=== PATIENT | male | born 1955 | race Caucasian/White ===

== ENCOUNTER 2021-01-03 10:00 | Outpatient (CLI) | payer MEDICARE, OTHER ==
[2021-01-03] MEDS ORDERED: DAKINS HALF STRENGTH (0.25%) 480 ML BOTTLE ONE (11:35)
== END 2021-01-03 23:59 | disposition home health service (06) ==
LOC: WOU 10:00
PROVIDERS: ATTEND Podiatrist Foot & Ankle Surgery
DX: I87.313 Chronic venous hypertension (idiopathic) with ulcer of bilateral lower extremity (principal); L97.828 Non-pressure chronic ulcer of other part of left lower leg with other specified severity; L97.818 Non-pressure chronic ulcer of other part of right lower leg with other specified severity; I87.2 Venous insufficiency (chronic) (peripheral); R26.2 Difficulty in walking, not elsewhere classified
CPT/HCPCS: 11042; 11045

== ENCOUNTER 2021-01-05 09:30 | Outpatient (CLI) | payer MEDICARE, OTHER ==
[2021-01-05] MEDS ORDERED: DAKINS HALF STRENGTH (0.25%) 480 ML BOTTLE ONE (11:03)
== END 2021-01-05 23:59 | disposition home or self-care (01) ==
LOC: VASLAB 09:30
PROVIDERS: ATTEND Internal Medicine
DX: I87.313 Chronic venous hypertension (idiopathic) with ulcer of bilateral lower extremity (principal); L97.929 Non-pressure chronic ulcer of unspecified part of left lower leg with unspecified severity; L97.919 Non-pressure chronic ulcer of unspecified part of right lower leg with unspecified severity; I87.2 Venous insufficiency (chronic) (peripheral); I27.20 Pulmonary hypertension, unspecified; K70.30 Alcoholic cirrhosis of liver without ascites
CPT/HCPCS: G0463

== ENCOUNTER 2021-01-17 09:15 | Outpatient (CLI) | payer MEDICARE, OTHER | END 2021-01-17 23:59 | disposition home health service (06) | LOC: WOU 09:15 | PROVIDERS: ATTEND Podiatrist Foot & Ankle Surgery | DX: I87.313 Chronic venous hypertension (idiopathic) with ulcer of bilateral lower extremity (principal); L97.822 Non-pressure chronic ulcer of other part of left lower leg with fat layer exposed; L97.812 Non-pressure chronic ulcer of other part of right lower leg with fat layer exposed; I87.2 Venous insufficiency (chronic) (peripheral); R26.2 Difficulty in walking, not elsewhere classified; Z96.653 Presence of artificial knee joint, bilateral | CPT/HCPCS: 11042; 11045 ==

== ENCOUNTER 2021-01-24 09:15 | Outpatient (CLI) | payer MEDICARE, OTHER | END 2021-01-24 23:59 | disposition home health service (06) | LOC: WOU 09:15 | PROVIDERS: ATTEND Podiatrist Foot & Ankle Surgery | DX: I87.313 Chronic venous hypertension (idiopathic) with ulcer of bilateral lower extremity (principal); L97.822 Non-pressure chronic ulcer of other part of left lower leg with fat layer exposed; L97.812 Non-pressure chronic ulcer of other part of right lower leg with fat layer exposed; I87.2 Venous insufficiency (chronic) (peripheral); R26.2 Difficulty in walking, not elsewhere classified | CPT/HCPCS: 11042; 11045; 29581; A6207 ==

== ENCOUNTER 2021-01-31 09:40 | Outpatient (CLI) | payer MEDICARE, OTHER | END 2021-01-31 23:59 | disposition home health service (06) | LOC: WOU 09:40 | PROVIDERS: ATTEND Podiatrist Foot & Ankle Surgery | DX: I87.313 Chronic venous hypertension (idiopathic) with ulcer of bilateral lower extremity (principal); L97.822 Non-pressure chronic ulcer of other part of left lower leg with fat layer exposed; L97.812 Non-pressure chronic ulcer of other part of right lower leg with fat layer exposed; I87.2 Venous insufficiency (chronic) (peripheral); R26.2 Difficulty in walking, not elsewhere classified; Z96.653 Presence of artificial knee joint, bilateral | CPT/HCPCS: 11042; 11045; A6207 ×2 ==

== ENCOUNTER 2021-02-14 09:30 | Outpatient (CLI) | payer MEDICARE, OTHER ==
[2021-02-14] MEDS ORDERED: UREA 10% -AHA 4% CREAM 57 GM TUBE ONE (10:36)
[2021-02-14] MEDS ORDERED: SILVER NITRATE APPLICATOR 1 EA BOX ONE (11:06)
== END 2021-02-14 23:59 | disposition home health service (06) ==
LOC: WOU 09:30
PROVIDERS: ATTEND Podiatrist Foot & Ankle Surgery
DX: I87.313 Chronic venous hypertension (idiopathic) with ulcer of bilateral lower extremity (principal); L97.822 Non-pressure chronic ulcer of other part of left lower leg with fat layer exposed; L97.812 Non-pressure chronic ulcer of other part of right lower leg with fat layer exposed; I87.2 Venous insufficiency (chronic) (peripheral); R26.2 Difficulty in walking, not elsewhere classified
CPT/HCPCS: 11042; 11045

== ENCOUNTER 2021-02-21 11:59 | Emergency (ER) | payer MEDICARE, OTHER ==
[~2021-02-21] VITALS: Ht 182.9 cm; Wt 111.1 kg
[2021-02-21 12:17] VITALS: BP 149/96
--- NOTE | 2021-02-21 12:51 | NUR ---
home phone number
--- NOTE | 2021-02-21 12:52 | NUR ---
covid swab collected and sent to lab.
--- NOTE | 2021-02-21 12:53 | NUR ---
Patient discharged to home in stable condition. Written and verbal after care instructions given. Patient verbalizes understanding of instruction.
== END 2021-02-21 12:53 | disposition home or self-care (01) ==
LOC: ER 12:02
DX: Z20.822 Contact with and (suspected) exposure to COVID-19 (principal); Z98.890 Other specified postprocedural states; M79.89 Other specified soft tissue disorders
CPT/HCPCS: C9803

== ENCOUNTER 2021-02-28 09:53 | Outpatient (CLI) | payer MEDICARE, OTHER ==
[2021-02-28] MEDS ORDERED: LIDOCAINE SOLN 4% 50 ML BOTTLE ONE (10:28)
== END 2021-02-28 23:59 | disposition home health service (06) ==
LOC: WOU 09:53
PROVIDERS: ATTEND Podiatrist Foot & Ankle Surgery
DX: I87.313 Chronic venous hypertension (idiopathic) with ulcer of bilateral lower extremity (principal); L97.822 Non-pressure chronic ulcer of other part of left lower leg with fat layer exposed; L97.812 Non-pressure chronic ulcer of other part of right lower leg with fat layer exposed; I87.2 Venous insufficiency (chronic) (peripheral); R26.2 Difficulty in walking, not elsewhere classified; Z96.653 Presence of artificial knee joint, bilateral
CPT/HCPCS: 11042; 11045; A6253

== ENCOUNTER 2021-03-07 10:25 | Outpatient (CLI) | payer MEDICARE, OTHER | END 2021-03-07 23:59 | disposition home health service (06) | LOC: WOU 10:25 | PROVIDERS: ATTEND Podiatrist Foot & Ankle Surgery | DX: I87.313 Chronic venous hypertension (idiopathic) with ulcer of bilateral lower extremity (principal); L97.822 Non-pressure chronic ulcer of other part of left lower leg with fat layer exposed; L97.812 Non-pressure chronic ulcer of other part of right lower leg with fat layer exposed; I87.2 Venous insufficiency (chronic) (peripheral); R26.2 Difficulty in walking, not elsewhere classified; Z96.653 Presence of artificial knee joint, bilateral | CPT/HCPCS: 11042; 11045 ×2; A6207 ==

== ENCOUNTER 2021-03-14 09:58 | Outpatient (CLI) | payer MEDICARE, OTHER | END 2021-03-14 23:59 | disposition home health service (06) | LOC: WOU 09:58 | PROVIDERS: ATTEND Podiatrist Foot & Ankle Surgery | DX: I87.313 Chronic venous hypertension (idiopathic) with ulcer of bilateral lower extremity (principal); L97.822 Non-pressure chronic ulcer of other part of left lower leg with fat layer exposed; L97.812 Non-pressure chronic ulcer of other part of right lower leg with fat layer exposed; I87.2 Venous insufficiency (chronic) (peripheral); R26.2 Difficulty in walking, not elsewhere classified; Z96.653 Presence of artificial knee joint, bilateral | CPT/HCPCS: 11042; 11045; A6197 ×2 ==

== ENCOUNTER 2021-03-21 09:40 | Outpatient (CLI) | payer MEDICARE, OTHER | END 2021-03-21 23:59 | disposition home health service (06) | LOC: WOU 09:40 | PROVIDERS: ATTEND Podiatrist Foot & Ankle Surgery | DX: I87.313 Chronic venous hypertension (idiopathic) with ulcer of bilateral lower extremity (principal); L97.822 Non-pressure chronic ulcer of other part of left lower leg with fat layer exposed; L97.812 Non-pressure chronic ulcer of other part of right lower leg with fat layer exposed; L97.512 Non-pressure chronic ulcer of other part of right foot with fat layer exposed; I87.2 Venous insufficiency (chronic) (peripheral); R26.2 Difficulty in walking, not elsewhere classified; Z96.653 Presence of artificial knee joint, bilateral | CPT/HCPCS: 11042; 11045; A6207 ==

== ENCOUNTER → 2021-03-28 | Outpatient (CLI) | payer MEDICARE, OTHER | END | disposition home health service (06) | LOC: WOU 10:30 | PROVIDERS: ATTEND Podiatrist Foot & Ankle Surgery | DX: I87.313 Chronic venous hypertension (idiopathic) with ulcer of bilateral lower extremity (principal); L97.822 Non-pressure chronic ulcer of other part of left lower leg with fat layer exposed; L97.812 Non-pressure chronic ulcer of other part of right lower leg with fat layer exposed; L97.512 Non-pressure chronic ulcer of other part of right foot with fat layer exposed; I87.2 Venous insufficiency (chronic) (peripheral); R26.2 Difficulty in walking, not elsewhere classified | CPT/HCPCS: 11042; 11045; A6207 ==

== ENCOUNTER 2021-04-04 10:05 | Outpatient (CLI) | payer MEDICARE, OTHER ==
[2021-04-04] MEDS ORDERED: LIDOCAINE SOLN 4% 50 ML BOTTLE ONE (11:03)
== END 2021-04-04 23:59 | disposition home health service (06) ==
LOC: WOU 10:05
PROVIDERS: ATTEND Podiatrist Foot & Ankle Surgery
DX: I87.313 Chronic venous hypertension (idiopathic) with ulcer of bilateral lower extremity (principal); L97.822 Non-pressure chronic ulcer of other part of left lower leg with fat layer exposed; L97.812 Non-pressure chronic ulcer of other part of right lower leg with fat layer exposed; L97.512 Non-pressure chronic ulcer of other part of right foot with fat layer exposed; L97.412 Non-pressure chronic ulcer of right heel and midfoot with fat layer exposed; I87.2 Venous insufficiency (chronic) (peripheral); R26.2 Difficulty in walking, not elsewhere classified; Z96.653 Presence of artificial knee joint, bilateral
CPT/HCPCS: 11042; 11045; A6197; A6207

== ENCOUNTER 2021-04-18 10:10 | Outpatient (CLI) | payer MEDICARE, OTHER ==
[2021-04-18] MEDS ORDERED: UREA 10% -AHA 4% CREAM 57 GM TUBE ONE (11:25)
== END 2021-04-18 23:59 | disposition home health service (06) ==
LOC: WOU 10:10
PROVIDERS: ATTEND Podiatrist Foot & Ankle Surgery
DX: I87.313 Chronic venous hypertension (idiopathic) with ulcer of bilateral lower extremity (principal); L97.828 Non-pressure chronic ulcer of other part of left lower leg with other specified severity; L97.812 Non-pressure chronic ulcer of other part of right lower leg with fat layer exposed; L97.512 Non-pressure chronic ulcer of other part of right foot with fat layer exposed; I87.2 Venous insufficiency (chronic) (peripheral); R26.2 Difficulty in walking, not elsewhere classified
CPT/HCPCS: 11042; 11045; 29581; A6207

== ENCOUNTER 2021-04-25 10:10 | Outpatient (CLI) | payer MEDICARE, OTHER ==
[2021-04-25] MEDS ORDERED: SILVER NITRATE APPLICATOR 1 EA BOX ONE (10:37)
== END 2021-04-25 23:59 | disposition home health service (06) ==
LOC: WOU 10:10
PROVIDERS: ATTEND Podiatrist Foot & Ankle Surgery
DX: I87.313 Chronic venous hypertension (idiopathic) with ulcer of bilateral lower extremity (principal); L97.812 Non-pressure chronic ulcer of other part of right lower leg with fat layer exposed; L97.522 Non-pressure chronic ulcer of other part of left foot with fat layer exposed; L97.512 Non-pressure chronic ulcer of other part of right foot with fat layer exposed; I87.2 Venous insufficiency (chronic) (peripheral); R26.2 Difficulty in walking, not elsewhere classified
CPT/HCPCS: 11042; 11045; A6207

== ENCOUNTER 2021-04-28 10:30 | Outpatient (CLI) | payer MEDICARE, OTHER | END 2021-04-28 23:59 | disposition home health service (06) | LOC: WOU 10:30 | PROVIDERS: ATTEND Podiatrist Foot & Ankle Surgery | DX: I87.313 Chronic venous hypertension (idiopathic) with ulcer of bilateral lower extremity (principal); L97.812 Non-pressure chronic ulcer of other part of right lower leg with fat layer exposed; L97.522 Non-pressure chronic ulcer of other part of left foot with fat layer exposed; L97.512 Non-pressure chronic ulcer of other part of right foot with fat layer exposed; I87.2 Venous insufficiency (chronic) (peripheral); R26.2 Difficulty in walking, not elsewhere classified | CPT/HCPCS: 11042; 11045; A6207 ==

== ENCOUNTER 2021-05-09 11:15 | Outpatient (CLI) | payer MEDICARE, OTHER ==
[2021-05-09] MEDS ORDERED: LIDOCAINE 2%-EPI 1:100,000 30 ML VIAL ONE (12:27)
[2021-05-09] MEDS ORDERED: BACI/NEOM/POLY B OINT PKT 1 UDPKT PACKET ONE (13:11)
== END 2021-05-09 23:59 | disposition home or self-care (01) ==
LOC: WOU 11:15
PROVIDERS: ATTEND Podiatrist Foot & Ankle Surgery
DX: S01.81XA Laceration without foreign body of other part of head, initial encounter (principal); W19.XXXA Unspecified fall, initial encounter; Y92.89 Other specified places as the place of occurrence of the external cause; I87.313 Chronic venous hypertension (idiopathic) with ulcer of bilateral lower extremity; L97.822 Non-pressure chronic ulcer of other part of left lower leg with fat layer exposed; L97.812 Non-pressure chronic ulcer of other part of right lower leg with fat layer exposed; L97.512 Non-pressure chronic ulcer of other part of right foot with fat layer exposed; L97.522 Non-pressure chronic ulcer of other part of left foot with fat layer exposed; I87.2 Venous insufficiency (chronic) (peripheral); R26.2 Difficulty in walking, not elsewhere classified
CPT/HCPCS: 11042; 11045; 29581-LT; A6197; A6207; J3490

== ENCOUNTER 2021-05-16 10:30 | Outpatient (CLI) | payer MEDICARE, OTHER ==
[2021-05-16] MEDS ORDERED: LIDOCAINE HCL/MPF 1% 30 ML VIAL IJ ONE (12:34)
[2021-05-16] MEDS ORDERED: BACI/NEOM/POLY B OINT PKT 1 UDPKT PACKET ONE (12:51)
== END 2021-05-16 23:59 | disposition home health service (06) ==
LOC: WOU 10:30
PROVIDERS: ATTEND Podiatrist Foot & Ankle Surgery
DX: I87.313 Chronic venous hypertension (idiopathic) with ulcer of bilateral lower extremity (principal); L97.822 Non-pressure chronic ulcer of other part of left lower leg with fat layer exposed; L97.812 Non-pressure chronic ulcer of other part of right lower leg with fat layer exposed; L97.522 Non-pressure chronic ulcer of other part of left foot with fat layer exposed; L97.512 Non-pressure chronic ulcer of other part of right foot with fat layer exposed; I87.2 Venous insufficiency (chronic) (peripheral); R26.2 Difficulty in walking, not elsewhere classified; S01.81XA Laceration without foreign body of other part of head, initial encounter; X58.XXXA Exposure to other specified factors, initial encounter; Y93.89 Activity, other specified; Y92.89 Other specified places as the place of occurrence of the external cause; S01.81XD Laceration without foreign body of other part of head, subsequent encounter; W19.XXXD Unspecified fall, subsequent encounter
CPT/HCPCS: 11042; 11045; 12011; A6207; J3490

== ENCOUNTER 2021-05-23 11:15 | Outpatient (CLI) | payer MEDICARE, OTHER ==
[2021-05-23] MEDS ORDERED: LIDOCAINE SOLN 4% 50 ML BOTTLE ONE (11:23)
== END 2021-05-23 23:59 | disposition home health service (06) ==
LOC: WOU 11:15
PROVIDERS: ATTEND Podiatrist Foot & Ankle Surgery
DX: I87.313 Chronic venous hypertension (idiopathic) with ulcer of bilateral lower extremity (principal); L97.812 Non-pressure chronic ulcer of other part of right lower leg with fat layer exposed; L97.522 Non-pressure chronic ulcer of other part of left foot with fat layer exposed; L97.512 Non-pressure chronic ulcer of other part of right foot with fat layer exposed; I87.2 Venous insufficiency (chronic) (peripheral); R26.2 Difficulty in walking, not elsewhere classified
CPT/HCPCS: 11042; 11045; A6197; A6207

== ENCOUNTER 2021-05-30 10:35 | Outpatient (CLI) | payer MEDICARE, OTHER ==
[2021-05-30] MEDS ORDERED: LIDOCAINE SOLN 4% 50 ML BOTTLE ONE (10:56)
== END 2021-05-30 23:59 | disposition home health service (06) ==
LOC: WOU 10:35
PROVIDERS: ATTEND Podiatrist Foot & Ankle Surgery
DX: I87.313 Chronic venous hypertension (idiopathic) with ulcer of bilateral lower extremity (principal); L97.828 Non-pressure chronic ulcer of other part of left lower leg with other specified severity; L97.812 Non-pressure chronic ulcer of other part of right lower leg with fat layer exposed; L97.522 Non-pressure chronic ulcer of other part of left foot with fat layer exposed; L97.512 Non-pressure chronic ulcer of other part of right foot with fat layer exposed; S01.81XD Laceration without foreign body of other part of head, subsequent encounter; W19.XXXD Unspecified fall, subsequent encounter; I87.2 Venous insufficiency (chronic) (peripheral); R26.2 Difficulty in walking, not elsewhere classified
CPT/HCPCS: 11042; A6207

== ENCOUNTER 2021-05-30 11:00 | Outpatient (CLI) | payer MEDICARE, OTHER ==
[2021-05-30 11:55] LABS: BASOPHILS # (AUTO) 0.1 K/uL (0.0-0.2); BASOPHILS % (AUTO) 1.1 % (0.0-2.0); EOSINOPHILS % (AUTO) 8.2 % (0.0-6.0); HEMATOCRIT 32 % (39-51); HEMOGLOBIN 10.2 g/dL (13.5-17.5); LYMPHOCYTES # (AUTO) 0.4 K/uL (0.8-4.8); LYMPHOCYTES % (AUTO) 7.1 % (20.0-44.0); MEAN CORPUSCULAR HGB CONC 32 g/dl (31.0-36.0); MEAN CORPUSCULAR VOLUME 86 fL (80-96); MONOCYTES # (AUTO) 0.6 K/uL (0.1-1.30); MONOCYTES % (AUTO) 9.7 % (2.0-12.0); NEUTROPHILS # (AUTO) 4.4 K/uL (1.8-8.9); NEUTROPHILS % (AUTO) 73.9 % (43.0-81.0); PLATELET COUNT (AUTO) 203 K/uL (150-450); RED BLOOD CELL COUNT(AUTO) 3.69 MIL/uL (4.5-6.0); WHITE BLOOD COUNT (AUTO) 5.9 K/uL (4.3-11.0)
[2021-05-30 12:08] LABS: CALCIUM, SERUM 9.3 mg/dL (8.5-10.1); CREATININE 0.8 mg/dL (0.6-1.3); POTASSIUM 3.3 mmol/L (3.5-5.1)
== END 2021-05-30 23:59 | disposition home or self-care (01) ==
LOC: LAB 11:00
PROVIDERS: ATTEND Internal Medicine
DX: D68.9 Coagulation defect, unspecified (principal); R06.02 Shortness of breath; R60.9 Edema, unspecified
CPT/HCPCS: 36415; 80048-TC; 85025-TC; 85730-TC

== ENCOUNTER 2021-06-06 10:00 | Outpatient (CLI) | payer MEDICARE, OTHER ==
[2021-06-06] MEDS ORDERED: UREA 10% -AHA 4% CREAM 57 GM TUBE ONE (11:19)
[2021-06-07 23:33] LABS: PREALBUMIN 16.7 MG/DL (18.0-35.7)
== END 2021-06-06 23:59 | disposition home health service (06) ==
LOC: WOU 10:00
PROVIDERS: ATTEND Podiatrist Foot & Ankle Surgery
DX: I87.311 Chronic venous hypertension (idiopathic) with ulcer of right lower extremity (principal); L97.812 Non-pressure chronic ulcer of other part of right lower leg with fat layer exposed; L97.512 Non-pressure chronic ulcer of other part of right foot with fat layer exposed; I87.2 Venous insufficiency (chronic) (peripheral); R26.2 Difficulty in walking, not elsewhere classified
CPT/HCPCS: 11042; 11045; 29581; 36415; 82306; 82607; 83036; 84134; A6207; J7040

== ENCOUNTER 2021-06-13 10:15 | Outpatient (CLI) | payer MEDICARE, OTHER ==
[2021-06-13] MEDS ORDERED: LIDOCAINE SOLN 4% 50 ML BOTTLE ONE (10:36)
[2021-06-13] MEDS ORDERED: UREA 10% -AHA 4% CREAM 57 GM TUBE ONE (11:32)
== END 2021-06-13 23:59 | disposition home health service (06) ==
LOC: WOU 10:15
PROVIDERS: ATTEND Podiatrist Foot & Ankle Surgery
DX: I87.311 Chronic venous hypertension (idiopathic) with ulcer of right lower extremity (principal); L97.812 Non-pressure chronic ulcer of other part of right lower leg with fat layer exposed; L97.512 Non-pressure chronic ulcer of other part of right foot with fat layer exposed; I87.2 Venous insufficiency (chronic) (peripheral); R26.2 Difficulty in walking, not elsewhere classified
CPT/HCPCS: 11042; 11045; 29581; A6197; A6207; J7040

== ENCOUNTER 2021-06-20 10:25 | Outpatient (CLI) | payer MEDICARE, OTHER ==
[2021-06-20] MEDS ORDERED: UREA 10% -AHA 4% CREAM 57 GM TUBE ONE (10:35)
[2021-06-20] MEDS ORDERED: LIDOCAINE SOLN 4% 50 ML BOTTLE ONE ×2 (10:37→10:39)
== END 2021-06-20 23:59 | disposition home or self-care (01) ==
LOC: WOU 10:25
PROVIDERS: ATTEND Podiatrist Foot & Ankle Surgery
DX: I87.311 Chronic venous hypertension (idiopathic) with ulcer of right lower extremity (principal); L97.812 Non-pressure chronic ulcer of other part of right lower leg with fat layer exposed; L97.512 Non-pressure chronic ulcer of other part of right foot with fat layer exposed; I87.2 Venous insufficiency (chronic) (peripheral); R26.2 Difficulty in walking, not elsewhere classified
CPT/HCPCS: 11042; 11045; A6207; J7040

== ENCOUNTER 2021-06-27 10:45 | Outpatient (CLI) | payer MEDICARE, OTHER ==
[2021-06-27] MEDS ORDERED: UREA 10% -AHA 4% CREAM 57 GM TUBE ONE (11:25)
== END 2021-06-27 23:59 | disposition home health service (06) ==
LOC: WOU 10:45
PROVIDERS: ATTEND Podiatrist Foot & Ankle Surgery
DX: I87.311 Chronic venous hypertension (idiopathic) with ulcer of right lower extremity (principal); L97.812 Non-pressure chronic ulcer of other part of right lower leg with fat layer exposed; L97.512 Non-pressure chronic ulcer of other part of right foot with fat layer exposed; I87.2 Venous insufficiency (chronic) (peripheral); R26.2 Difficulty in walking, not elsewhere classified
CPT/HCPCS: 11042; 11045; A6207

== ENCOUNTER 2021-07-04 10:25 | Outpatient (CLI) | payer MEDICARE, OTHER ==
[2021-07-04] MEDS ORDERED: UREA 10% -AHA 4% CREAM 57 GM TUBE ONE (11:56)
== END 2021-07-04 23:59 | disposition home health service (06) ==
LOC: WOU 10:25
PROVIDERS: ATTEND Podiatrist Foot & Ankle Surgery
DX: I87.311 Chronic venous hypertension (idiopathic) with ulcer of right lower extremity (principal); L97.812 Non-pressure chronic ulcer of other part of right lower leg with fat layer exposed; I87.2 Venous insufficiency (chronic) (peripheral); R26.2 Difficulty in walking, not elsewhere classified
CPT/HCPCS: 11042; 11045; 29581; A6207; J7040

== ENCOUNTER 2021-07-11 11:10 | Outpatient (CLI) | payer MEDICARE, OTHER ==
[2021-07-11] MEDS ORDERED: LIDOCAINE SOLN 4% 50 ML BOTTLE ONE (11:12)
== END 2021-07-11 23:59 | disposition home health service (06) ==
LOC: WOU 11:10
PROVIDERS: ATTEND Podiatrist Foot & Ankle Surgery
DX: I87.311 Chronic venous hypertension (idiopathic) with ulcer of right lower extremity (principal); L97.812 Non-pressure chronic ulcer of other part of right lower leg with fat layer exposed; L97.522 Non-pressure chronic ulcer of other part of left foot with fat layer exposed; I87.2 Venous insufficiency (chronic) (peripheral); R26.2 Difficulty in walking, not elsewhere classified; Z96.653 Presence of artificial knee joint, bilateral
CPT/HCPCS: 11042; 11045; A6207

== ENCOUNTER 2021-07-18 10:30 | Outpatient (CLI) | payer MEDICARE, OTHER ==
[2021-07-18] MEDS ORDERED: UREA 10% -AHA 4% CREAM 57 GM TUBE ONE (10:57)
== END 2021-07-18 23:59 | disposition home health service (06) ==
LOC: WOU 10:30
PROVIDERS: ATTEND Podiatrist Foot & Ankle Surgery
DX: I87.311 Chronic venous hypertension (idiopathic) with ulcer of right lower extremity (principal); L97.812 Non-pressure chronic ulcer of other part of right lower leg with fat layer exposed; L97.522 Non-pressure chronic ulcer of other part of left foot with fat layer exposed; I87.2 Venous insufficiency (chronic) (peripheral); Z96.653 Presence of artificial knee joint, bilateral
CPT/HCPCS: 11042; 11045; A6207

== ENCOUNTER 2021-07-25 09:50 | Outpatient (CLI) | payer MEDICARE, OTHER ==
[2021-07-25] MEDS ORDERED: LIDOCAINE SOLN 4% 50 ML BOTTLE ONE (10:06)
[2021-07-25] MEDS ORDERED: UREA 10% -AHA 4% CREAM 57 GM TUBE ONE (11:11)
== END 2021-07-25 23:59 | disposition home health service (06) ==
LOC: WOU 09:50
PROVIDERS: ATTEND Podiatrist Foot & Ankle Surgery
DX: I87.313 Chronic venous hypertension (idiopathic) with ulcer of bilateral lower extremity (principal); L97.812 Non-pressure chronic ulcer of other part of right lower leg with fat layer exposed; L97.522 Non-pressure chronic ulcer of other part of left foot with fat layer exposed; I87.2 Venous insufficiency (chronic) (peripheral); R26.2 Difficulty in walking, not elsewhere classified; Z96.653 Presence of artificial knee joint, bilateral
CPT/HCPCS: 11042; 11045; A6207; J7040

== ENCOUNTER 2021-08-01 10:00 | Outpatient (CLI) | payer MEDICARE, OTHER ==
[~2021-08-01 10:00] MED LIST: LIDOCAINE SOLN 4% 50 ML BOTTLE ONE; UREA 10% -AHA 4% CREAM 57 GM TUBE ONE
== END 2021-08-01 23:59 | disposition home health service (06) ==
LOC: WOU 10:00
PROVIDERS: ATTEND Podiatrist Foot & Ankle Surgery
DX: I87.313 Chronic venous hypertension (idiopathic) with ulcer of bilateral lower extremity (principal); L97.812 Non-pressure chronic ulcer of other part of right lower leg with fat layer exposed; L97.522 Non-pressure chronic ulcer of other part of left foot with fat layer exposed; L97.512 Non-pressure chronic ulcer of other part of right foot with fat layer exposed; I87.2 Venous insufficiency (chronic) (peripheral); R26.2 Difficulty in walking, not elsewhere classified; Z96.653 Presence of artificial knee joint, bilateral
CPT/HCPCS: 11042; 11045; A6207; J7040

== ENCOUNTER 2021-08-08 09:55 | Outpatient (CLI) | payer MEDICARE, OTHER ==
[2021-08-08] MEDS ORDERED: UREA 10% -AHA 4% CREAM 57 GM TUBE ONE (10:40)
== END 2021-08-08 23:59 | disposition home or self-care (01) ==
LOC: WOU 09:55
PROVIDERS: ATTEND Podiatrist Foot & Ankle Surgery
DX: Z48.00 Encounter for change or removal of nonsurgical wound dressing (principal)
CPT/HCPCS: 29581; A6207; 29580

== ENCOUNTER → 2021-08-15 | Outpatient (CLI) | payer MEDICARE, OTHER ==
[~2021-08-15] MED LIST changes: -LIDOCAINE SOLN 4% 50 ML BOTTLE ONE
== END | disposition home health service (06) ==
LOC: WOU 10:15
PROVIDERS: ATTEND Podiatrist Foot & Ankle Surgery
DX: I87.311 Chronic venous hypertension (idiopathic) with ulcer of right lower extremity (principal); L97.812 Non-pressure chronic ulcer of other part of right lower leg with fat layer exposed; I87.2 Venous insufficiency (chronic) (peripheral); R26.2 Difficulty in walking, not elsewhere classified; Z96.653 Presence of artificial knee joint, bilateral
CPT/HCPCS: 11042; 11045; 29581; A6207; J7040

== ENCOUNTER 2021-08-22 10:05 | Outpatient (CLI) | payer MEDICARE, OTHER | END 2021-08-22 23:59 | disposition home health service (06) | LOC: WOU 10:05 | PROVIDERS: ATTEND Podiatrist Foot & Ankle Surgery | DX: I87.311 Chronic venous hypertension (idiopathic) with ulcer of right lower extremity (principal); L97.812 Non-pressure chronic ulcer of other part of right lower leg with fat layer exposed; I87.2 Venous insufficiency (chronic) (peripheral); R26.2 Difficulty in walking, not elsewhere classified; Z96.653 Presence of artificial knee joint, bilateral | CPT/HCPCS: 11042; 11045; A6207; J7040 ==

== ENCOUNTER 2021-08-29 10:15 | Outpatient (CLI) | payer MEDICARE, OTHER ==
[2021-08-29] MEDS ORDERED: UREA 10% -AHA 4% CREAM 57 GM TUBE ONE (11:16)
== END 2021-08-29 23:59 | disposition home health service (06) ==
LOC: WOU 10:15
PROVIDERS: ATTEND Podiatrist Foot & Ankle Surgery
DX: I87.311 Chronic venous hypertension (idiopathic) with ulcer of right lower extremity (principal); L97.812 Non-pressure chronic ulcer of other part of right lower leg with fat layer exposed; I87.2 Venous insufficiency (chronic) (peripheral); R60.0 Localized edema
CPT/HCPCS: 11042; 11045; 29581; A6207; J7040

== ENCOUNTER 2021-09-05 10:30 | Outpatient (CLI) | payer MEDICARE, OTHER | END 2021-09-05 23:59 | disposition home health service (06) | LOC: WOU 10:30 | PROVIDERS: ATTEND Podiatrist Foot & Ankle Surgery | DX: I87.311 Chronic venous hypertension (idiopathic) with ulcer of right lower extremity (principal); L97.812 Non-pressure chronic ulcer of other part of right lower leg with fat layer exposed; I87.2 Venous insufficiency (chronic) (peripheral); R26.2 Difficulty in walking, not elsewhere classified; Z96.653 Presence of artificial knee joint, bilateral | CPT/HCPCS: 11042; 11045; 29581; A6207; J7040 ==

== ENCOUNTER 2021-10-27 08:58 | Outpatient (CLI) | payer MEDICARE, OTHER ==
[2021-10-27 11:45] LABS: BASOPHILS # (AUTO) 0.1 K/uL (0.0-0.2); BASOPHILS % (AUTO) 0.9 % (0.0-2.0); EOSINOPHILS % (AUTO) 15.4 % (0.0-6.0); HEMATOCRIT 36 % (39-51); HEMOGLOBIN 11.6 g/dL (13.5-17.5); LYMPHOCYTES # (AUTO) 0.7 K/uL (0.8-4.8); MEAN CORPUSCULAR HGB CONC 33 g/dl (31.0-36.0); MEAN CORPUSCULAR VOLUME 84 fL (80-96); MONOCYTES # (AUTO) 0.5 K/uL (0.1-1.30); MONOCYTES % (AUTO) 9.1 % (2.0-12.0); NEUTROPHILS # (AUTO) 3.5 K/uL (1.8-8.9); NEUTROPHILS % (AUTO) 62.6 % (43.0-81.0); PLATELET COUNT (AUTO) 160 K/uL (150-450); RED BLOOD CELL COUNT(AUTO) 4.24 MIL/uL (4.5-6.0); WHITE BLOOD COUNT (AUTO) 5.6 K/uL (4.3-11.0)
[2021-10-27 11:49] LABS: BILIRUBIN,URINE NEGATIVE (NEGATIVE); COLOR,URINE YELLOW (YELLOW); LEUKOCYTE ESTERASE ,URINE NEGATIVE (NEGATIVE); NITRITE, URINE NEGATIVE (NEGATIVE); PROTEIN,URINE NEGATIVE (NEGATIVE); UGLUCOSE NEGATIVE (NEGATIVE); UROBILINOGEN,URINE 0.2 EU/dL (0.2)
[2021-10-27 12:14] LABS: CREATININE, URINE 112.2 MG/DL (30.0-125.0); URINE TOTAL PROTEIN 36.6 mg/dL (0-11.9)
[2021-10-27 12:25] LABS: FREE T4 (FREE THYROXINE) 1.26 ng/dL (0.76-1.46); THYROID STIMULATING HORMONE 3.705 uIU/mL (0.358-3.74)
[2021-10-27 12:33] LABS: C-REACTIVE PROTEIN 8.4 mg/dL (0.0-0.9)
[2021-10-27 18:30] LABS: ALBUMIN 3.2 g/dL (3.4-5.0); BILIRUBIN,TOTAL 0.5 mg/dL (0.2-1.0); CALCIUM, SERUM 8.7 mg/dL (8.5-10.1); CREATININE 0.8 mg/dL (0.6-1.3); MAGNESIUM 2.2 mg/dL (1.8-2.4); POTASSIUM 4.6 mmol/L (3.5-5.1); TOTAL PROTEIN, SERUM 6.5 g/dL (6.4-8.2)
[2021-10-27 19:04] LABS: PHOSPHORUS 3.5 mg/dL (2.5-4.9)
[2021-10-31 08:29] LABS: PROSTATE SPECIFIC ANTIGEN SCR 1.2 ng/mL (0.00-4.00); URIC ACID 3.8 mg/dL (2.6-7.2)
== END 2021-10-27 23:59 | disposition home or self-care (01) ==
LOC: MSC 08:58
PROVIDERS: ATTEND Internal Medicine
DX: I89.0 Lymphedema, not elsewhere classified (principal); S81.802D Unspecified open wound, left lower leg, subsequent encounter; S81.801D Unspecified open wound, right lower leg, subsequent encounter; I27.20 Pulmonary hypertension, unspecified; S22.009A Unspecified fracture of unspecified thoracic vertebra, initial encounter for closed fracture; S32.009A Unspecified fracture of unspecified lumbar vertebra, initial encounter for closed fracture; W19.XXXA Unspecified fall, initial encounter; K74.60 Unspecified cirrhosis of liver; G47.30 Sleep apnea, unspecified; Z99.89 Dependence on other enabling machines and devices; Z79.899 Other long term (current) drug therapy
CPT/HCPCS: 80061; 85025; 82570 ×2; 83735; 83036; 84100; 85652; 81003; 36415; 84439; 82746; 84443; 82607; 80053; 86140; 82306; 82043; 84155; G0463; 84153-TC; 84550-TC

== ENCOUNTER 2021-10-27 09:05 | Outpatient (CLI) | payer MEDICARE, OTHER | END 2021-10-27 23:59 | disposition home health service (06) | LOC: WOU 09:05 | PROVIDERS: ATTEND Podiatrist Foot & Ankle Surgery | DX: I87.311 Chronic venous hypertension (idiopathic) with ulcer of right lower extremity (principal); L97.318 Non-pressure chronic ulcer of right ankle with other specified severity; L97.518 Non-pressure chronic ulcer of other part of right foot with other specified severity; L97.818 Non-pressure chronic ulcer of other part of right lower leg with other specified severity; I87.2 Venous insufficiency (chronic) (peripheral); R26.2 Difficulty in walking, not elsewhere classified | CPT/HCPCS: 11042; 29581; 11045; A6207 ==

== ENCOUNTER 2021-11-01 10:39 | Outpatient (CLI) | payer MEDICARE, OTHER | END 2021-11-01 23:59 | disposition home or self-care (01) | LOC: MSC 10:39 | PROVIDERS: ATTEND Internal Medicine | DX: E87.1 Hypo-osmolality and hyponatremia (principal); I89.0 Lymphedema, not elsewhere classified; I27.20 Pulmonary hypertension, unspecified; S81.802D Unspecified open wound, left lower leg, subsequent encounter; S81.801D Unspecified open wound, right lower leg, subsequent encounter; S22.009D Unspecified fracture of unspecified thoracic vertebra, subsequent encounter for fracture with routine healing; S32.009D Unspecified fracture of unspecified lumbar vertebra, subsequent encounter for fracture with routine healing; K74.60 Unspecified cirrhosis of liver; G47.30 Sleep apnea, unspecified; Z99.89 Dependence on other enabling machines and devices; Z79.899 Other long term (current) drug therapy ==

== ENCOUNTER 2021-11-10 09:15 | Outpatient (CLI) | payer MEDICARE, OTHER | END 2021-11-10 23:59 | disposition home health service (06) | LOC: WOU 09:15 | PROVIDERS: ATTEND Podiatrist Foot & Ankle Surgery | DX: I87.311 Chronic venous hypertension (idiopathic) with ulcer of right lower extremity (principal); L97.312 Non-pressure chronic ulcer of right ankle with fat layer exposed; L97.812 Non-pressure chronic ulcer of other part of right lower leg with fat layer exposed; L97.512 Non-pressure chronic ulcer of other part of right foot with fat layer exposed; I87.2 Venous insufficiency (chronic) (peripheral); R26.2 Difficulty in walking, not elsewhere classified | CPT/HCPCS: 11042; 29581; 11045; A6207 ==

== ENCOUNTER 2021-11-17 09:55 | Outpatient (CLI) | payer MEDICARE, OTHER | END 2021-11-17 23:59 | disposition home health service (06) | LOC: WOU 09:55 | PROVIDERS: ATTEND Podiatrist Foot & Ankle Surgery | DX: I87.313 Chronic venous hypertension (idiopathic) with ulcer of bilateral lower extremity (principal); L97.322 Non-pressure chronic ulcer of left ankle with fat layer exposed; L97.312 Non-pressure chronic ulcer of right ankle with fat layer exposed; L97.512 Non-pressure chronic ulcer of other part of right foot with fat layer exposed; L97.812 Non-pressure chronic ulcer of other part of right lower leg with fat layer exposed; I87.2 Venous insufficiency (chronic) (peripheral); R26.2 Difficulty in walking, not elsewhere classified | CPT/HCPCS: 11042; 11045; A6207 ==

== ENCOUNTER 2021-11-22 10:30 | Outpatient (CLI) | payer MEDICARE, OTHER | END 2021-11-22 23:59 | disposition home or self-care (01) | LOC: MSC 10:30 | PROVIDERS: ATTEND Anesthesiology | DX: G89.4 Chronic pain syndrome (principal); M54.50 Low back pain, unspecified; M25.562 Pain in left knee; M25.561 Pain in right knee; Z99.3 Dependence on wheelchair; F11.20 Opioid dependence, uncomplicated; K70.30 Alcoholic cirrhosis of liver without ascites ==

== ENCOUNTER 2021-12-26 09:00 | Outpatient (CLI) | payer MEDICARE, OTHER | END 2021-12-26 23:59 | disposition home or self-care (01) | LOC: WOU 09:00 | PROVIDERS: ATTEND Podiatrist Foot & Ankle Surgery | DX: I87.313 Chronic venous hypertension (idiopathic) with ulcer of bilateral lower extremity (principal); L97.312 Non-pressure chronic ulcer of right ankle with fat layer exposed; L97.822 Non-pressure chronic ulcer of other part of left lower leg with fat layer exposed; L97.812 Non-pressure chronic ulcer of other part of right lower leg with fat layer exposed; L97.512 Non-pressure chronic ulcer of other part of right foot with fat layer exposed; I87.2 Venous insufficiency (chronic) (peripheral); R26.2 Difficulty in walking, not elsewhere classified | CPT/HCPCS: 11042; 87077; 87075; 87070; 87186 ×3; 11045; J7040; A6207 ==

== ENCOUNTER 2022-01-02 09:00 | Outpatient (CLI) | payer MEDICARE, OTHER ==
[2022-01-02] MEDS ORDERED: LIDOCAINE SOLN 4% 50 ML BOTTLE ONE (09:05)
[2022-01-02] MEDS ORDERED: UREA 10% -AHA 4% CREAM 57 GM TUBE ONE (09:30)
[2022-01-02] MEDS ORDERED: GENTAMICIN 0.1% CREAM 15 GM TUBE ONE ×2 (10:13)
== END 2022-01-02 23:59 | disposition home health service (06) ==
LOC: WOU 09:00
PROVIDERS: ATTEND Podiatrist Foot & Ankle Surgery
DX: I87.313 Chronic venous hypertension (idiopathic) with ulcer of bilateral lower extremity (principal); L97.318 Non-pressure chronic ulcer of right ankle with other specified severity; L97.512 Non-pressure chronic ulcer of other part of right foot with fat layer exposed; L97.828 Non-pressure chronic ulcer of other part of left lower leg with other specified severity; L97.812 Non-pressure chronic ulcer of other part of right lower leg with fat layer exposed; I87.2 Venous insufficiency (chronic) (peripheral); R26.2 Difficulty in walking, not elsewhere classified; Z96.653 Presence of artificial knee joint, bilateral
CPT/HCPCS: 11042; 11045; J7040; A6207

== ENCOUNTER 2022-01-03 09:48 | Outpatient (CLI) | payer MEDICARE, OTHER | END 2022-01-03 23:59 | disposition home or self-care (01) | LOC: MSC 09:48 | PROVIDERS: ATTEND Anesthesiology | DX: G89.4 Chronic pain syndrome (principal); M54.50 Low back pain, unspecified; M25.562 Pain in left knee; M25.561 Pain in right knee; F11.20 Opioid dependence, uncomplicated; K70.30 Alcoholic cirrhosis of liver without ascites; Z99.3 Dependence on wheelchair ==

== ENCOUNTER → 2022-01-05 | Outpatient (CLI) | payer MEDICARE, OTHER | END | disposition home or self-care (01) | LOC: WOU 12:30 | PROVIDERS: ATTEND Registered Nurse | DX: S91.301D Unspecified open wound, right foot, subsequent encounter (principal); X58.XXXD Exposure to other specified factors, subsequent encounter; L08.9 Local infection of the skin and subcutaneous tissue, unspecified; B96.5 Pseudomonas (aeruginosa) (mallei) (pseudomallei) as the cause of diseases classified elsewhere; B96.4 Proteus (mirabilis) (morganii) as the cause of diseases classified elsewhere; B95.2 Enterococcus as the cause of diseases classified elsewhere; I89.0 Lymphedema, not elsewhere classified; G47.33 Obstructive sleep apnea (adult) (pediatric); I27.20 Pulmonary hypertension, unspecified; K74.60 Unspecified cirrhosis of liver; Z96.653 Presence of artificial knee joint, bilateral | CPT/HCPCS: G0463 ==

== ENCOUNTER 2022-01-10 09:15 | Outpatient (CLI) | payer MEDICARE, OTHER ==
[2022-01-10] MEDS ORDERED: LIDOCAINE SOLN 4% 50 ML BOTTLE ONE (09:22)
[2022-01-10] MEDS ORDERED: UREA 10% -AHA 4% CREAM 57 GM TUBE ONE (09:23)
[2022-01-10] MEDS ORDERED: GENTAMICIN 0.1% CREAM 15 GM TUBE ONE ×2 (10:18→10:23)
== END 2022-01-10 23:59 | disposition home health service (06) ==
LOC: WOU 09:15
PROVIDERS: ATTEND Surgery
DX: I87.313 Chronic venous hypertension (idiopathic) with ulcer of bilateral lower extremity (principal); L97.822 Non-pressure chronic ulcer of other part of left lower leg with fat layer exposed; L97.812 Non-pressure chronic ulcer of other part of right lower leg with fat layer exposed; L97.312 Non-pressure chronic ulcer of right ankle with fat layer exposed; L97.512 Non-pressure chronic ulcer of other part of right foot with fat layer exposed; I87.2 Venous insufficiency (chronic) (peripheral); R26.2 Difficulty in walking, not elsewhere classified
CPT/HCPCS: 11042; 11045; J7040; A6207

== ENCOUNTER 2022-01-16 09:15 | Outpatient (CLI) | payer MEDICARE, OTHER ==
[2022-01-16] MEDS ORDERED: GENTAMICIN 0.1% CREAM 15 GM TUBE ONE (09:59)
[2022-01-16 10:10] LABS: BASOPHILS # (AUTO) 0.1 K/uL (0.0-0.2); BASOPHILS % (AUTO) 1.1 % (0.0-2.0); EOSINOPHILS % (AUTO) 6.4 % (0.0-6.0); HEMATOCRIT 39 % (39-51); HEMOGLOBIN 12.4 g/dL (13.5-17.5); LYMPHOCYTES # (AUTO) 0.5 K/uL (0.8-4.8); LYMPHOCYTES % (AUTO) 9.6 % (20.0-44.0); MEAN CORPUSCULAR HGB CONC 32 g/dl (31.0-36.0); MEAN CORPUSCULAR VOLUME 86 fL (80-96); MONOCYTES # (AUTO) 0.5 K/uL (0.1-1.30); MONOCYTES % (AUTO) 10.2 % (2.0-12.0); NEUTROPHILS # (AUTO) 3.7 K/uL (1.8-8.9); NEUTROPHILS % (AUTO) 72.7 % (43.0-81.0); PLATELET COUNT (AUTO) 210 K/uL (150-450); RED BLOOD CELL COUNT(AUTO) 4.51 MIL/uL (4.5-6.0); WHITE BLOOD COUNT (AUTO) 5.1 K/uL (4.3-11.0)
[2022-01-16 10:12] LABS: CREATININE 0.8 mg/dL (0.6-1.3); POTASSIUM 3.9 mmol/L (3.5-5.1)
[2022-01-16] MEDS ORDERED: UREA 10% -AHA 4% CREAM 57 GM TUBE ONE (13:45)
[2022-01-16] MEDS ORDERED: DAKINS HALF STRENGTH (0.25%) 480 ML BOTTLE ONE (13:45)
== END 2022-01-16 23:59 | disposition home health service (06) ==
LOC: WOU 09:15
PROVIDERS: ATTEND Surgery
DX: I87.311 Chronic venous hypertension (idiopathic) with ulcer of right lower extremity (principal); L97.312 Non-pressure chronic ulcer of right ankle with fat layer exposed; L97.812 Non-pressure chronic ulcer of other part of right lower leg with fat layer exposed; L97.512 Non-pressure chronic ulcer of other part of right foot with fat layer exposed; I87.2 Venous insufficiency (chronic) (peripheral); R26.2 Difficulty in walking, not elsewhere classified
CPT/HCPCS: 11042; 11045; 85025; 80048; 36415; A6207

== ENCOUNTER 2022-01-23 09:15 | Outpatient (CLI) | payer MEDICARE, OTHER ==
[2022-01-23] MEDS ORDERED: GENTAMICIN 0.1% CREAM 15 GM TUBE ONE (09:40)
[2022-01-23] MEDS ORDERED: UREA 10% -AHA 4% CREAM 57 GM TUBE ONE (11:05)
== END 2022-01-23 23:59 | disposition home or self-care (01) ==
LOC: WOU 09:15
PROVIDERS: ATTEND Podiatrist Foot & Ankle Surgery
DX: I87.311 Chronic venous hypertension (idiopathic) with ulcer of right lower extremity (principal); L97.312 Non-pressure chronic ulcer of right ankle with fat layer exposed; L97.512 Non-pressure chronic ulcer of other part of right foot with fat layer exposed; L97.822 Non-pressure chronic ulcer of other part of left lower leg with fat layer exposed; L97.812 Non-pressure chronic ulcer of other part of right lower leg with fat layer exposed; I87.2 Venous insufficiency (chronic) (peripheral); R26.2 Difficulty in walking, not elsewhere classified; Z96.653 Presence of artificial knee joint, bilateral
CPT/HCPCS: 11042; 11045; A6207

== ENCOUNTER 2022-01-30 08:47 | Outpatient (CLI) | payer MEDICARE, OTHER ==
[2022-01-30] MEDS ORDERED: UREA 10% -AHA 4% CREAM 57 GM TUBE ONE (08:49)
[2022-01-30] MEDS ORDERED: DAKINS HALF STRENGTH (0.25%) 480 ML BOTTLE ONE (08:54)
[2022-01-30] MEDS ORDERED: GENTAMICIN 0.1% CREAM 15 GM TUBE ONE (09:33)
== END 2022-01-30 23:59 | disposition home health service (06) ==
LOC: WOU 08:47
PROVIDERS: ATTEND Podiatrist Foot & Ankle Surgery
DX: I87.311 Chronic venous hypertension (idiopathic) with ulcer of right lower extremity (principal); L97.312 Non-pressure chronic ulcer of right ankle with fat layer exposed; L97.512 Non-pressure chronic ulcer of other part of right foot with fat layer exposed; L97.812 Non-pressure chronic ulcer of other part of right lower leg with fat layer exposed; I87.2 Venous insufficiency (chronic) (peripheral); R26.2 Difficulty in walking, not elsewhere classified
CPT/HCPCS: 11042; 97597; 11045; A6207

== ENCOUNTER 2022-02-06 09:24 | Outpatient (CLI) | payer MEDICARE, OTHER ==
[2022-02-06] MEDS ORDERED: GENTAMICIN 0.1% CREAM 15 GM TUBE ONE (09:30)
[2022-02-06] MEDS ORDERED: UREA 10% -AHA 4% CREAM 57 GM TUBE ONE (09:32)
== END 2022-02-06 23:59 | disposition home health service (06) ==
LOC: WOU 09:24
PROVIDERS: ATTEND Podiatrist Foot & Ankle Surgery
DX: I87.311 Chronic venous hypertension (idiopathic) with ulcer of right lower extremity (principal); L97.312 Non-pressure chronic ulcer of right ankle with fat layer exposed; L97.518 Non-pressure chronic ulcer of other part of right foot with other specified severity; L97.812 Non-pressure chronic ulcer of other part of right lower leg with fat layer exposed; I87.2 Venous insufficiency (chronic) (peripheral); R26.2 Difficulty in walking, not elsewhere classified; Z96.653 Presence of artificial knee joint, bilateral
CPT/HCPCS: 11042; 11045; A6207

== ENCOUNTER 2022-02-13 08:49 | Outpatient (CLI) | payer MEDICARE, OTHER ==
[2022-02-13] MEDS ORDERED: DAKINS HALF STRENGTH (0.25%) 480 ML BOTTLE ONE (09:34)
[2022-02-13] MEDS ORDERED: GENTAMICIN 0.1% CREAM 15 GM TUBE ONE (09:39)
[2022-02-13] MEDS ORDERED: UREA 10% -AHA 4% CREAM 57 GM TUBE ONE (09:39)
== END 2022-02-13 23:59 | disposition home health service (06) ==
LOC: WOU 08:49
PROVIDERS: ATTEND Podiatrist Foot & Ankle Surgery
DX: I87.313 Chronic venous hypertension (idiopathic) with ulcer of bilateral lower extremity (principal); L97.822 Non-pressure chronic ulcer of other part of left lower leg with fat layer exposed; L97.812 Non-pressure chronic ulcer of other part of right lower leg with fat layer exposed; L97.312 Non-pressure chronic ulcer of right ankle with fat layer exposed; I87.2 Venous insufficiency (chronic) (peripheral); R26.2 Difficulty in walking, not elsewhere classified
CPT/HCPCS: 11042; 11045; A6207

== ENCOUNTER 2022-02-20 09:49 | Outpatient (CLI) | payer MEDICARE, OTHER ==
[~2022-02-20 09:49] MED LIST changes: +DAKINS HALF STRENGTH (0.25%) 480 ML BOTTLE ONE; -UREA 10% -AHA 4% CREAM 57 GM TUBE ONE
[2022-02-20] MEDS ORDERED: GENTAMICIN 0.1% CREAM 15 GM TUBE ONE (10:25)
[2022-02-20] MEDS ORDERED: UREA 10% -AHA 4% CREAM 57 GM TUBE ONE (10:46)
== END 2022-02-20 23:59 | disposition home health service (06) ==
LOC: WOU 09:49
PROVIDERS: ATTEND Podiatrist Foot & Ankle Surgery
DX: I87.311 Chronic venous hypertension (idiopathic) with ulcer of right lower extremity (principal); L97.312 Non-pressure chronic ulcer of right ankle with fat layer exposed; L97.812 Non-pressure chronic ulcer of other part of right lower leg with fat layer exposed; L97.512 Non-pressure chronic ulcer of other part of right foot with fat layer exposed; I87.2 Venous insufficiency (chronic) (peripheral); R26.2 Difficulty in walking, not elsewhere classified
CPT/HCPCS: 11042; 11045; 87077; 87075; 87070; A6207

== ENCOUNTER 2022-02-27 09:15 | Outpatient (CLI) | payer MEDICARE, OTHER ==
[2022-02-27] MEDS ORDERED: DAKINS HALF STRENGTH (0.25%) 480 ML BOTTLE ONE (09:44)
[2022-02-27] MEDS ORDERED: UREA 10% -AHA 4% CREAM 57 GM TUBE ONE (09:44)
[2022-02-27] MEDS ORDERED: MUPIROCIN 2% CREAM 15 GM TUBE TP ONE (10:03)
== END 2022-02-27 23:59 | disposition home health service (06) ==
LOC: WOU 09:15
PROVIDERS: ATTEND Podiatrist Foot & Ankle Surgery
DX: I87.311 Chronic venous hypertension (idiopathic) with ulcer of right lower extremity (principal); L97.312 Non-pressure chronic ulcer of right ankle with fat layer exposed; L97.512 Non-pressure chronic ulcer of other part of right foot with fat layer exposed; L97.812 Non-pressure chronic ulcer of other part of right lower leg with fat layer exposed; L08.9 Local infection of the skin and subcutaneous tissue, unspecified; B95.62 Methicillin resistant Staphylococcus aureus infection as the cause of diseases classified elsewhere; I87.2 Venous insufficiency (chronic) (peripheral); L84 Corns and callosities; R26.2 Difficulty in walking, not elsewhere classified
CPT/HCPCS: 11042; 11055; 11045; A6207

== ENCOUNTER 2022-03-20 09:45 | Outpatient (CLI) | payer MEDICARE, OTHER ==
[2022-03-20] MEDS ORDERED: SILVER NITRATE APPLICATOR 1 EA BOX ONE (10:22)
[2022-03-20] MEDS ORDERED: MUPIROCIN 2% CREAM 15 GM TUBE TP ONE (10:45)
== END 2022-03-20 23:59 | disposition home health service (06) ==
LOC: WOU 09:45
PROVIDERS: ATTEND Podiatrist Foot & Ankle Surgery
DX: I87.311 Chronic venous hypertension (idiopathic) with ulcer of right lower extremity (principal); L97.312 Non-pressure chronic ulcer of right ankle with fat layer exposed; L97.512 Non-pressure chronic ulcer of other part of right foot with fat layer exposed; L97.818 Non-pressure chronic ulcer of other part of right lower leg with other specified severity; I87.2 Venous insufficiency (chronic) (peripheral); L84 Corns and callosities; R26.2 Difficulty in walking, not elsewhere classified
CPT/HCPCS: 11042; 11055; A6207

== ENCOUNTER 2022-03-27 09:22 | Outpatient (CLI) | payer MEDICARE, OTHER ==
[~2022-03-27 09:22] MED LIST changes: -DAKINS HALF STRENGTH (0.25%) 480 ML BOTTLE ONE; +MUPIROCIN 2% CREAM 15 GM TUBE TP ONE
== END 2022-03-27 23:59 | disposition home health service (06) ==
LOC: WOU 09:22
PROVIDERS: ATTEND Podiatrist Foot & Ankle Surgery
DX: I87.311 Chronic venous hypertension (idiopathic) with ulcer of right lower extremity (principal); L97.312 Non-pressure chronic ulcer of right ankle with fat layer exposed; L97.518 Non-pressure chronic ulcer of other part of right foot with other specified severity; L97.812 Non-pressure chronic ulcer of other part of right lower leg with fat layer exposed; I87.2 Venous insufficiency (chronic) (peripheral); R26.2 Difficulty in walking, not elsewhere classified; Z96.653 Presence of artificial knee joint, bilateral
CPT/HCPCS: 11042; A6207

== ENCOUNTER 2022-04-03 09:03 | Outpatient (CLI) | payer MEDICARE, OTHER ==
[2022-04-03] MEDS ORDERED: LIDOCAINE SOLN 4% 50 ML BOTTLE ONE (09:39)
[2022-04-03] MEDS ORDERED: HYDROCORTISONE 1% CREAM 28.35 GM TUBE TP ONE (09:54)
== END 2022-04-03 23:59 | disposition home health service (06) ==
LOC: WOU 09:03
PROVIDERS: ATTEND Podiatrist Foot & Ankle Surgery
DX: I87.311 Chronic venous hypertension (idiopathic) with ulcer of right lower extremity (principal); L97.512 Non-pressure chronic ulcer of other part of right foot with fat layer exposed; L97.818 Non-pressure chronic ulcer of other part of right lower leg with other specified severity; I87.2 Venous insufficiency (chronic) (peripheral); R26.2 Difficulty in walking, not elsewhere classified; Z96.653 Presence of artificial knee joint, bilateral; Z87.891 Personal history of nicotine dependence
CPT/HCPCS: 11042; A6207

== ENCOUNTER → 2022-04-13 | Outpatient (CLI) | payer MEDICARE, OTHER ==
[~2022-04-13] MED LIST changes: -MUPIROCIN 2% CREAM 15 GM TUBE TP ONE; +UREA 10% -AHA 4% CREAM 57 GM TUBE ONE
== END | disposition home health service (06) ==
LOC: WOU 08:42
PROVIDERS: ATTEND Podiatrist Foot & Ankle Surgery
DX: I87.311 Chronic venous hypertension (idiopathic) with ulcer of right lower extremity (principal); L97.312 Non-pressure chronic ulcer of right ankle with fat layer exposed; L97.818 Non-pressure chronic ulcer of other part of right lower leg with other specified severity; I87.2 Venous insufficiency (chronic) (peripheral); R26.2 Difficulty in walking, not elsewhere classified
CPT/HCPCS: 11042; 29581; A6207

== ENCOUNTER 2022-04-20 09:12 | Outpatient (CLI) | payer MEDICARE, OTHER | END 2022-04-20 23:59 | disposition home health service (06) | LOC: WOU 09:12 | PROVIDERS: ATTEND Podiatrist Foot & Ankle Surgery | DX: I87.311 Chronic venous hypertension (idiopathic) with ulcer of right lower extremity (principal); L97.312 Non-pressure chronic ulcer of right ankle with fat layer exposed; L97.812 Non-pressure chronic ulcer of other part of right lower leg with fat layer exposed; I87.2 Venous insufficiency (chronic) (peripheral); R26.2 Difficulty in walking, not elsewhere classified; Z96.653 Presence of artificial knee joint, bilateral | CPT/HCPCS: 11042; 29581; 11045; A6207 ==

== ENCOUNTER 2022-04-27 09:02 | Outpatient (CLI) | payer MEDICARE, OTHER ==
[~2022-04-27 09:02] MED LIST changes: +COLLAGENASE 5 GM TUBE UD TP ONE; -UREA 10% -AHA 4% CREAM 57 GM TUBE ONE
[2022-04-27] MEDS ORDERED: DAKINS HALF STRENGTH (0.25%) 480 ML BOTTLE ONE (09:08)
[2022-04-27 10:15] LABS: BASOPHILS % (AUTO) 1.1 % (0.0-2.0); EOSINOPHILS % (AUTO) 9.6 % (0.0-6.0); HEMATOCRIT 36 % (39-51); HEMOGLOBIN 11.2 g/dL (13.5-17.5); LYMPHOCYTES # (AUTO) 0.5 K/uL (0.8-4.8); LYMPHOCYTES % (AUTO) 11.9 % (20.0-44.0); MEAN CORPUSCULAR HGB CONC 31 g/dl (31.0-36.0); MEAN CORPUSCULAR VOLUME 88 fL (80-96); MONOCYTES # (AUTO) 0.5 K/uL (0.1-1.30); MONOCYTES % (AUTO) 11.3 % (2.0-12.0); NEUTROPHILS % (AUTO) 66.1 % (43.0-81.0); PLATELET COUNT (AUTO) 178 K/uL (150-450); WHITE BLOOD COUNT (AUTO) 4.5 K/uL (4.3-11.0)
[2022-04-27 10:39] LABS: ALBUMIN 3.2 g/dL (3.4-5.0); BILIRUBIN,TOTAL 0.6 mg/dL (0.2-1.0); CALCIUM, SERUM 8.9 mg/dL (8.5-10.1); CREATININE 0.9 mg/dL (0.6-1.3); TOTAL PROTEIN, SERUM 6.8 g/dL (6.4-8.2)
[2022-04-27 10:54] LABS: C-REACTIVE PROTEIN 4.6 mg/dL (0.0-0.9)
== END 2022-04-27 23:59 | disposition home or self-care (01) ==
LOC: WOU 09:02
PROVIDERS: ATTEND Podiatrist Foot & Ankle Surgery
DX: I87.311 Chronic venous hypertension (idiopathic) with ulcer of right lower extremity (principal); L97.812 Non-pressure chronic ulcer of other part of right lower leg with fat layer exposed; L89.893 Pressure ulcer of other site, stage 3; I87.2 Venous insufficiency (chronic) (peripheral); R26.2 Difficulty in walking, not elsewhere classified; Z87.891 Personal history of nicotine dependence
CPT/HCPCS: 11042; 11045; 85025; 85652; 36415; 80053; 84134; 86140; J7040; A6207; A6209

== ENCOUNTER → 2022-04-28 | Outpatient (CLI) | payer MEDICARE, OTHER | END | disposition home or self-care (01) | LOC: WOU 13:00 | PROVIDERS: ATTEND Registered Nurse | DX: S81.801D Unspecified open wound, right lower leg, subsequent encounter (principal); X58.XXXD Exposure to other specified factors, subsequent encounter; B96.5 Pseudomonas (aeruginosa) (mallei) (pseudomallei) as the cause of diseases classified elsewhere; B95.62 Methicillin resistant Staphylococcus aureus infection as the cause of diseases classified elsewhere; I89.0 Lymphedema, not elsewhere classified; I27.20 Pulmonary hypertension, unspecified; K74.60 Unspecified cirrhosis of liver; F10.21 Alcohol dependence, in remission; Z85.828 Personal history of other malignant neoplasm of skin; G47.33 Obstructive sleep apnea (adult) (pediatric); Z96.653 Presence of artificial knee joint, bilateral | CPT/HCPCS: G0463 ==

== ENCOUNTER 2022-05-11 09:35 | Outpatient (CLI) | payer MEDICARE, OTHER ==
[2022-05-11] MEDS ORDERED: DAKINS HALF STRENGTH (0.25%) 480 ML BOTTLE ONE (13:33)
[2022-05-11] MEDS ORDERED: UREA 10% -AHA 4% CREAM 57 GM TUBE ONE (13:33)
== END 2022-05-11 23:59 | disposition home health service (06) ==
LOC: WOU 09:35
PROVIDERS: ATTEND Podiatrist Foot & Ankle Surgery
DX: I87.311 Chronic venous hypertension (idiopathic) with ulcer of right lower extremity (principal); L97.812 Non-pressure chronic ulcer of other part of right lower leg with fat layer exposed; I87.2 Venous insufficiency (chronic) (peripheral); R26.2 Difficulty in walking, not elsewhere classified; L03.115 Cellulitis of right lower limb; B95.62 Methicillin resistant Staphylococcus aureus infection as the cause of diseases classified elsewhere; Z87.891 Personal history of nicotine dependence; Z96.653 Presence of artificial knee joint, bilateral
CPT/HCPCS: 11042; 29581; 11045; J7040; A6207

== ENCOUNTER 2022-05-11 10:33 | Outpatient (CLI) | payer MEDICARE, OTHER | END 2022-05-11 23:59 | disposition home health service (06) | LOC: WOU 10:33 | PROVIDERS: ATTEND Registered Nurse | DX: I87.311 Chronic venous hypertension (idiopathic) with ulcer of right lower extremity (principal); L97.812 Non-pressure chronic ulcer of other part of right lower leg with fat layer exposed; L03.115 Cellulitis of right lower limb; B95.62 Methicillin resistant Staphylococcus aureus infection as the cause of diseases classified elsewhere; I87.2 Venous insufficiency (chronic) (peripheral); R26.2 Difficulty in walking, not elsewhere classified; Z87.891 Personal history of nicotine dependence; Z96.653 Presence of artificial knee joint, bilateral | CPT/HCPCS: 36569; 29581; 11042; 11045; J7040; A6207 ==

== ENCOUNTER 2022-05-18 08:50 | Outpatient (CLI) | payer MEDICARE, OTHER ==
[2022-05-18] MEDS ORDERED: UREA 10% -AHA 4% CREAM 57 GM TUBE ONE (10:41)
== END 2022-05-18 23:59 | disposition home health service (06) ==
LOC: WOU 08:50
PROVIDERS: ATTEND Podiatrist Foot & Ankle Surgery
DX: I87.311 Chronic venous hypertension (idiopathic) with ulcer of right lower extremity (principal); L97.812 Non-pressure chronic ulcer of other part of right lower leg with fat layer exposed; S81.011A Laceration without foreign body, right knee, initial encounter; X58.XXXA Exposure to other specified factors, initial encounter; Y92.89 Other specified places as the place of occurrence of the external cause; I87.2 Venous insufficiency (chronic) (peripheral); R26.2 Difficulty in walking, not elsewhere classified; Z96.653 Presence of artificial knee joint, bilateral
CPT/HCPCS: 11042; 29581; 11045; 36415; 80202; A6207

== ENCOUNTER 2022-05-23 09:09 | Outpatient (CLI) | payer MEDICARE, OTHER | END 2022-05-23 23:59 | disposition home or self-care (01) | LOC: MSC 09:09 | PROVIDERS: ATTEND Anesthesiology | DX: M79.604 Pain in right leg (principal); G89.4 Chronic pain syndrome; M54.50 Low back pain, unspecified; M25.562 Pain in left knee; M25.561 Pain in right knee; F11.20 Opioid dependence, uncomplicated; K70.30 Alcoholic cirrhosis of liver without ascites; I27.20 Pulmonary hypertension, unspecified; I89.0 Lymphedema, not elsewhere classified; Z99.3 Dependence on wheelchair ==

== ENCOUNTER 2022-05-23 09:22 | Outpatient (CLI) | payer MEDICARE, OTHER | END 2022-05-23 23:59 | disposition home or self-care (01) | LOC: LAB 09:22 | PROVIDERS: ATTEND Registered Nurse | DX: L03.115 Cellulitis of right lower limb (principal); Z79.2 Long term (current) use of antibiotics | CPT/HCPCS: 36415; 80202-TC ==